=== PATIENT | male | born 1935 | race Caucasian/White ===

== ENCOUNTER 2019-04-04 03:39 | Inpatient (IN) | payer MEDICARE, MEDICAID ==
[~2019-04-04] VITALS: Ht 167.6 cm; Wt 88.2 kg
[2019-04-04 04:00] VITALS: BP 183/99
[2019-04-04 04:30] VITALS: BP 179/88
[2019-04-04 05:30] VITALS: BP 189/96
[2019-04-04] MEDS ORDERED: BAYER CHEWABLE81 MG PO (06:03)
[2019-04-04] MEDS ORDERED: FLOMAX0.4 MG PO (06:04)
[2019-04-04] MEDS ORDERED: NEXIUM40 MG PO (06:04)
[2019-04-04] MEDS ORDERED: HYDROCHLOROTHIA25 MG PO (06:04)
[2019-04-04] MEDS ORDERED: FEXOFENADINE H180 MG PO (06:05)
[2019-04-04] MEDS ORDERED: SINGULAIR10 MG PO (06:06)
[2019-04-04] MEDS ORDERED: NEURONTIN 300300 MG PO (06:06)
[2019-04-04 09:55] VITALS: BMI 31.4
[2019-04-04 10:35] VITALS: BP 181/80
[2019-04-04 11:00] LABS: BASOPHILS 0.1 % (0-2); EOSINOPHILS 0 % (0-7); HEMOGLOBIN 15.7 g/dL (13.5-17.5); IMMATURE GRANULOCYTES 0.3 % (0-5); LYMPHOCYTES 9.3 % (15-50); MCH 29.7 pg (26.0-34.0); MCHC 33.4 g/dL (31.0-37.0); MCV 88.8 fL (80.0-100.0); MEAN PLATELET VOLUME 11.2 fL (7.4-10.4); MONOCYTES 7.8 % (2-11); NEUTROPHILS 82.5 % (40-80); PLATELET COUNT 261 10x3/uL (130-400); RBC 5.29 10x6/uL (4.20-6.10); RDW 13.9 % (11.5-14.5)
[2019-04-04 11:16] LABS: ALBUMIN 3.2 g/dL (3.4-5.0); ALKALINE PHOSPHATASE 84 U/L (46-116); ALT (SGPT) 28 U/L (10-68); BILIRUBIN - TOTAL 0.49 mg/dL (0.2-1.3); CALC OSMOLALITY 275 mosm/kg (275-300); CALCIUM 8.8 mg/dL (8.5-10.1); CARBON DIOXIDE 29.2 mmol/L (21.0-32.0); CHLORIDE - SERUM 100 mmol/L (98-107); CREATININE - SERUM 0.9 mg/dL (0.6-1.3); GLUCOSE 136 mg/dL (74-106); POTASSIUM - SERUM 4.1 mmol/L (3.5-5.1); PROTEIN - SERUM 7.6 g/dL (6.4-8.2); SODIUM 137 mmol/L (136-145); UREA NITROGEN 12 mg/dL (7-18); eGFR NON AFRICAN AMERICAN 85 mL/min (90-120)
[2019-04-04 11:31] VITALS: BP 189/96; BMI 31.3
--- NOTE | 2019-04-04 13:04 | MORECARE ---
CASE MANAGEMENT DISCHARGE SUMMARY PATIENT: MINERVA FOSTER UNIT: [id number] ADM DATE: 04/04/19 AGE: 83 : 35 SEX: M ROOM/BED: D.2214 AUTHOR: FARHANA DIAZ PHYSICIAN: REFERRING PHYSICIAN: CAROLINA HANNON MD DATE OF SERVICE: 04/04/19 Discharge Plan Patient Name: MINERVA FOSTER Facility: [facility]:[place] : 1935 Planned Disposition: Anticipated Discharge Date: Discharge Date: Expected LOS: Initial Reviewer: [email or web address] Initial Review Date: 04/04/2019 Generated: 04/04/19 2:04 pm Comments DCP- Discharge Planning Updated by [email or web address]: Марина Hamm on 04/04/19 12:[address] RECEIVED ORDER TO TRANSFER PATIENT DUE TO OR BEING DOWN. I SPOKW WITH PATIENT AND HE WOULD LIKE TO GO TO [facility]. EASY ADMIT CALLED I SPOKE WITH WERO FAXED FACESHEET TO START THE PROCESS TO TRANSFER FOR SURGERY. CM TO FOLLOW AND ASSIST NEEDED Patient Name: MINERVA FOSTER Page [phone] at 1304 All edits/amendments must be made on the electronic document DICTATION DATE: 04/04/19 1304 AIRCRAFT ACCESSORIES MECHANIC: CY 04/04/19 1304 RPT#: [id number] DC DATE: STATUS: ADM IN [facility] [address] [place] [address] END OF REPORT
[2019-04-04 13:45] VITALS: BP 160/78
[2019-04-04 13:52] VITALS: Ht 167.6 cm; Wt 88.2 kg
--- NOTE | 2019-04-04 15:15 | MORECARE ---
CASE MANAGEMENT DISCHARGE SUMMARY PATIENT: MINERVA FOSTER UNIT: [id number] ADM DATE: 04/04/19 AGE: 83 : 35 SEX: M ROOM/BED: D.2214 AUTHOR: FARHANA DIAZ PHYSICIAN: REFERRING PHYSICIAN: CAROLINA HANNON MD DATE OF SERVICE: 04/04/19 Discharge Plan Patient Name: MINERVA FOSTER Facility: [facility]:[place] : 1935 Planned Disposition: Anticipated Discharge Date: Discharge Date: Expected LOS: Initial Reviewer: [email or web address] Initial Review Date: 04/04/2019 Generated: 04/04/19 4:15 pm Comments DCP- Discharge Planning Updated by [email or web address]: Марниа Hamm on 04/04/19 2:[address] SPOKE WITH LYNDSEY IRIZARRY AND DR AGARWAL MULTIPLE TIMES. DR AGARWAL STATED TO CONTINUE TO TRY TRANSFER, I CALLED WERO WITH EASY ADMIT SHE STATED THAT [facility] WOULD NOT EVEN TAKE HIS NAME, THEY ARE FULL [facility] HAS DENIED THE PATIENT AND HE IS ON A WAIT LIST FOR LATTER-DAY IN , BECAUSE THEY ARE FULL. WILL CONTINUE TO FOLLOW AND ASSIST WITH TRANSFERING PATIENT. DCP- Discharge Planning Updated by [email or web address]: Марина Hamm on 04/04/19 12:[address] RECEIVED ORDER TO TRANSFER PATIENT DUE TO OR BEING DOWN. I SPOKW WITH PATIENT AND HE WOULD LIKE TO GO TO [facility]. EASY ADMIT CALLED I SPOKE WITH WERO FAXED FACESHEET TO START THE PROCESS TO TRANSFER FOR SURGERY. CM TO FOLLOW AND ASSIST NEEDED Last DP export: 04/04/19 12:04 p Patient Name: MINERVA FOSTER Page [phone] at 1515 All edits/amendments must be made on the electronic document DICTATION DATE: 04/04/191514 BOOM CONVEYOR OPERATOR: CY 04/04/191514 RPT#: [id number] DC DATE: STATUS: ADM IN [facility] [address] [place] [address] END OF REPORT
[2019-04-04] MEDS ORDERED: MERREM 1 GM/NS 11 G1 IV (16:16)
--- NOTE | 2019-04-04 16:16 | NUR ---
PT WILL TRANSFER TO [facility] IN [place]. LEONEL BARRETT RN
--- NOTE | 2019-04-04 17:02 | NUR ---
LEFT UNNIT WITH [facility] FOT TRANSPORT TO [facility] IN [place]
--- NOTE | 2019-04-05 16:40 | MORECARE ---
CASE MANAGEMENT DISCHARGE SUMMARY PATIENT: MINERVA FOSTER UNIT: [id number] ADM DATE: 04/04/19 AGE: 83 : 35 SEX: M ROOM/BED: D.2214 AUTHOR: FARHANA DIAZ PHYSICIAN: REFERRING PHYSICIAN: CAROLINA HANNON MD DATE OF SERVICE: 04/05/19 Discharge Plan Patient Name: MINERVA FOSTER Facility: [facility]:[place] : 1935 Planned Disposition: Anticipated Discharge Date: Discharge Date: 04/04/2019 Expected LOS: 0 Initial Reviewer: [email or web address] Initial Review Date: 04/04/2019 Generated: 04/05/19 5:40 pm Comments DCP- Discharge Planning Updated by [email or web address]: Марина Hamm on 04/04/19 2:[address] SPOKE WITH LYNDSEY IRIZARRY AND DR AGARWAL MULTIPLE TIMES. DR AGARWAL STATED TO CONTINUE TO TRY TRANSFER, I CALLED WERO WITH EASY ADMIT SHE STATED THAT [facility] WOULD NOT EVEN TAKE HIS NAME, THEY ARE FULL [facility] HAS DENIED THE PATIENT AND HE IS ON A WAIT LIST FOR [place] IN , BECAUSE THEY ARE FULL. WILL CONTINUE TO FOLLOW AND ASSIST WITH TRANSFERING PATIENT. DCP- Discharge Planning Updated by [email or web address]: Марина Hamm on 04/04/19 12:[address] RECEIVED ORDER TO TRANSFER PATIENT DUE TO OR BEING DOWN. I SPOKW WITH PATIENT AND HE WOULD LIKE TO GO TO [facility]. EASY ADMIT CALLED I SPOKE WITH WERO FAXED FACESHEET TO START THE PROCESS TO TRANSFER FOR SURGERY. CM TO FOLLOW AND ASSIST NEEDED Last DP export: 04/04/19 2:15 p Patient Name: MINERVA FOSTER Page 85031 at 1640 All edits/amendments must be made on the electronic document DICTATION DATE: 04/05/191638 HOIST MECHANIC: CY 04/05/19 1639 RPT#: [id number] DC DATE:04/04/19 STATUS: DIS IN [facility] [address] [place] [address] END OF REPORT
== END 2019-04-04 17:02 | disposition short-term general hospital (02) | DRG 444 ==
LOC: D.ER 03:39 → D.MS 04:44
PROVIDERS: ADMIT Family Medicine; ATTEND Family Medicine
DX: K81.0 Acute cholecystitis (principal); J96.01 Acute respiratory failure with hypoxia; J44.0 Chronic obstructive pulmonary disease with (acute) lower respiratory infection; J84.9 Interstitial pulmonary disease, unspecified; K21.9 Gastro-esophageal reflux disease without esophagitis; F10.10 Alcohol abuse, uncomplicated

== ENCOUNTER 2019-04-27 01:45 | Observation (INO) | payer MEDICARE ==
[~2019-04-27] VITALS: Ht 167.6 cm; Wt 83.2 kg
--- NOTE | ~2019-04-27 | HEMODYNAMI ---
PATIENT:MINERVA NYE MEDICAL RECORD: [id number] : 35 [facility] [id number] ADMISSION DATE: 04/27/19 Generatedon:04/27/201910:26 Patient name: MINERVA NYE Patient #: [id number] SSN: : 1935 Date of study: 04/27/2019 Page: Of Hemodynamic Procedure Report Patient Data Patient Demographics Procedure consent was obtained First Name: MINERVA Gender: Male Last Name: PARRIS : 1935 Patient #: [id number] Age: 83 year(s) Race: Unknown Additional ID: [id number] Contact details [address]: [address] [place] [address] State: [place] City: [place] Zip code: [address] Past Medical History Allergies: No known allergies Admission Admission Data Admission Date: 04/27/2019 Admission Time: 3:16 Room #: D.2139 Lab Results Lab Result Date: 04/27/2019 Lab Result Time: 2:21 Biochemistry Name Units Result Min Max BUN mg/dl 21 --(----)-* 7 18 Creatinine mg/dl 1 --(--*-)-- 0.6 1.3 CBC Name Units Result Min Max Hematocrit % 44.2 --(*---)-- 42 54 Hemoglobin g/dl 14.6 --(-*--)-- 13.5 17.5 Procedure Procedure Types Cath Procedure Diagnostic Procedure LHC LHC w/Coronaries Sedation Charges Moderate Sedation up to 15 minutes PCI Procedure Coronary Stent Coronary Stent Initial Procedure Description Procedure Date Procedure Date: 04/27/2019 Procedure Start Time: 9:55 Procedure End Time: 10:22 Procedure Staff Name Function Sajan Rdz MD Performing Physician Shruti Nick RT Scrub Kartik Dumont RN Nurse Jose Medrano RT Monitor Samuel Herman RT Monitor Procedure Data Cath Procedure Fluoroscopy Diagnostic fluoroscopy Total fluoroscopy Time: 5.4 time: 5.4 min min Diagnostic fluoroscopy Total fluoroscopy dose: 876 dose: 876 mGy mGy Contrast Material Contrast Material Type Amount (ml) Isovue 300 91 Entry Location Entry Primary Successful Side Size Upsize 1 Upsize Entry Closure Llanes ccessful Closure Location (Fr) (Fr) 2 (Fr) Remarks Device Remarks Femoral Right 5 Fr 6 Fr 6 Fr Exoseal artery Mid-Length Short Estimated blood loss: 10 ml Diagnostic catheters Device Type Used For End Catheter Placement MULTIPACK JL 4.0 5Fr Procedure catheter MULTIPACK 3DRC 5Fr Procedure catheter MULTIPACK Pigtail 5 Fr Procedure catheter Procedure Complications No complications Procedure Medications Medication Administration Route Dosage Oxygen etCO2 Nasal cannula 2 l/min Lidocaine 2% added to field 20 Heparin Flush Bag added to field 2 bags (1000units/500ml NS) 0.9% NaCl I.V. 100 ml/hr Versed I.V. 1 mg Fentanyl I.V. 50 mcg Versed I.V. 1 mg Heparin Bolus I.V. 4000 units Fentanyl I.V. 50 mcg Versed I.V. 1 mg Hemodynamics Rest HGB: 14.6 (g/dl) Heart Rate: 64 (bpm) Pressure Samples Time Site Value (mmHg) Purpose Heart Use Rate(bpm) 10:18 LV 183/9,12 Snapshot 73 Gradients Valve Time Site Site Mean SEP/DFP Peak To Heart Use 1 2 (mmHg) (sec/min) Peak Rate (mmHg) (bpm) Aortic 10:18 LV AO 72 Snapshots Pre Cath Intra NCS Post Cath Vital Signs Time Heart Resp SPO2 etCO2 NIBP (mmHg) Rhythm Pain Sedation Rate (ipm) (%) (mmHg) Status Level (bpm) 9:52:21 63 15 96 41.1 136/66(93) NSR 0 (11) 10(A) , No pain 9:56:29 64 13 94 0 114/67(85) NSR 0 (11) 10(A) , No pain 10:00:39 62 13 97 14.9 131/67(108) NSR 0 (11) 9(A) , No pain 10:04:53 70 13 97 10.4 123/68(92) NSR 0 (11) 9(A) , No pain 10:09:03 68 14 96 29.1 117/67(92) NSR 0 (11) 9(A) , No pain 10:13:11 67 14 97 25.4 134/68(106) NSR 0 (11) 9(A) , No pain 10:18:18 73 13 96 9.7 166/89(140) NSR 0 (11) 9(A) , No pain 10:22:36 71 16 96 28.4 154/93(137) NSR 0 (11) 10(A) , No pain Medications Time Medication Route Dose Verified Delivered Reason Notes Effectiveness by by 9:51:28 Oxygen etCO2 2 Sajan Verdugo used for Nasal l/min [facility] Emre Dumont RN procedure cannula 9:51:39 Lidocaine 2% added 20ml Sajan Moeller for local to vial [facility] anesthetic field MD FRAUSTO 9:51:57 Heparin Flush added 2 Sajan Sajan used for Bag to bags [facility] procedure (1000units/500ml field MD FRAUSTO NS) 9:52:10 0.9% NaCl I.V. 100 Sajan Verdugo Per physician ml/hr [facility] Dumont RN, MD 9:54:21 Versed I.V. 1 mg Sajan Verdugo for sedation [facility] Em[facility] Dumont RN, MD 9:54:27 Fentanyl I.V. 50 Sajan Friasie for sedation mcg [facility] Emre Dumont RN, MD 10:01:18 Versed I.V. 1 mg Sajan Verdugo for sedation [facility] Emre Dumont RN, MD 10:02:22 Fentanyl I.V. 50 Sajan Verdugo for sedation mcg [facility] Emre Dumont RN, MD 10:07:34 Heparin Bolus I.V. 4000 Sajan Verdugo for verif ied units [facility] Emre Dumont RN anticoagulation with dr MD gray 10:10:39 Versed I.V. 1 mg Sajan Verdugo for sedation [facility] Emre Dumont RN, MD Procedure Log Time Note 8:59:08 Diagnostic Cath Status : Elective 9:00:37 Kartik Dumont RN sent for patient. Start room use. 9:35:57 Time tracking: Regular hours (M-F 7:00 - 5:00) 9:36:01 Plan of Care:Hemodynamics will remain stable., Cardiac rhythm will remain stable., Comfort level will be maintained., Respiratory function will remain adequate., Patient/ family verbilizes understanding of procedure., Procedure tolerated without complication., Recovers from procedure without complications.. 9:36:09 Patient received from Med II to [facility] Alert and oriented. Tansferred to table in Supine position. 9:36:10 Warm blankets applied, and tien hugger turned on for patient comfort. 9:36:11 Correct patient and procedure confirmed by team. 9:36:25 Signed procedure consent form obtained from patient. 9:36:27 ECG and BP/O2 sat monitors applied to patient. 9:51:16 Vital chart was started 9:51:28 Oxygen 2 l/min etCO2 Nasal cannula was administered by Kartik Dumont RN; used for procedure; 9:51:31 Baseline sample Acquired. 9:51:33 Rhythm: sinus rhythm 9:51:35 Full Disclosure recording started 9:51:39 Lidocaine 2% 20ml vial added to field was administered by Sajan Rdz MD; for local anesthetic; 9:51:47 H&P Date Dictated: 04/27/2019 Within 30 days and on chart.. 9:51:48 Pre-procedure instructions explained to patient. 9:51:48 Pre-op teaching completed and patient verbalized understanding. 9:51:50 Family in patients room. 9:51:51 Patient NPO since Midnight. 9:51:57 Heparin Flush Bag (1000units/500ml NS) 2 bags added to field was administered by Sajan Rdz MD; used for procedure; 9:52:03 Patient allergic to No known allergies 9:52:05 Is the patient allergic to Iodine/contrast media? No. 9:52:05 Is patient on blood thinner?Yes 9:52:07 ACC The patient was administered the following blood thiners within the last 24 hours: ACCPlavix 9:52:09 Patient diabetic? No. 9:52:10 0.9% NaCl 100 ml/hr I.V. was administered by Kartik Dumont RN; Per physician; 9:52:17 Previous problem with sedation/anesthesia? No ? 9:52:18 Snore? Yes 9:52:19 Sleep apnea? No 9:52:21 Deviated septum? No 9:52:22 Opens mouth fully? Yes 9:52:26 Sticks out tongue? Yes 9:52:28 Airway obstruction? No ? 9:52:31 Dentures? Yes in tight 9:52:34 Pre procedure: right dorsailis pedis pulse 1+ Palpable, but thready & weak; easily obliterated 9:52:35 Patient pain scale 0/10 ?. 9:52:39 IV patent on arrival in left forearm with 0.9% NaCl at O. 9:53:14 Lab Result : Creatinine 1 mg/dl 9:53:14 Lab Result : BUN 21 mg/dl 9:53:14 Lab Result : Hemoglobin 14.6 g/dl 9:53:14 Lab Result : Hematocrit 44.2 % 9:53:18 Lab results completed and on chart. 9:53:31 Right groin area was prepped with chlora-prep and draped in sterile fashion 9:53:32 Alarms reviewed by R. N. 9:53:33 Sharps counted by scrub and verified by R.N. 9:53:35 Use device set Femoral Dx 9:53:36 ACIST Syringe (13984) opened to sterile field. 9:53:36 Bag Decanter (2002S) opened to sterile field. 9:53:37 Medline Cath Pack ([id number]) opened to sterile field. 9:53:38 ACIST Hand Control (44345) opened to sterile field. 9:53:38 ACIST Manifold (15300) opened to sterile field. 9:53:39 Tegaderm 4 x 4 (1626W) opened to sterile field. 9:53:41 DIAGNOSTIC WIRE .035 260cm J wire (171814) opened to sterile field. 9:53:42 DIAGNOSTIC Multipack 5Fr catheter set (AE9242) opened to sterile field. 9:53:43 SHEATH 5FR [place] (XMB808) opened to sterile field. 9:53:50 Physician arrived 9:53:50 --------ALL STOP TIME OUT------ 9:53:50 Final Timeout: patient, procedure, and site verified with staff and physician. All members of the team are in agreement. 9:53:52 Right groin site verified by team. 9:53:55 Maximum allowable Isovue 300 dose 300ml. Physician notified. (300ml for normal creatinines. For patients with creatinine of 1.7 or higher multiply weight(kg) x 5 divided by creatinine.) 9:53:59 Fire Safety Assessment: A--An alcohol-based skin anteseptic being used preoperatively., C--Open oxygen or nitrous oxide is being used., D--An ESU, laser, or fiber-optic light is being used. 9:54:02 Physical assessment completed. ASA score P 2 - A patient with mild systemic disease as per Sajan Rdz MD. 9:54:04 Sedation plan: IV Moderate Sedation Medication:Versed, Fentanyl 9:54:08 Procedure started. 9:54:21 Versed 1 mg I.V. was administered by Kartik Dumont RN; for sedation; 9:54:27 Fentanyl 50 mcg I.V. was administered by Kartik Dumont RN; for sedation; 9:55:26 Local anesthetic to right femoral artery with Lidocaine 2% by Sajan Rdz MD.INITIAL ACCESS ONLY 9:55:32 A 5 Fr sheath was inserted into the Right Femoral artery 9:55:35 Zero performed for pressure channel P1 9:55:44 Zero performed for pressure channel P1 9:55:48 Zero performed for pressure channel P1 9:55:58 Zero performed for pressure channel P1 9:56:12 Zero performed for pressure channel P1 9:56:17 Zero performed for pressure channel P1 10:00:33 A MULTIPACK JL 4.0 5Fr catheter was advanced over the wire and used for Procedure. 10:00:40 LCA angiography performed. 10:01:18 Versed 1 mg I.V. was administered by Kartik Dumont RN; for sedation; 10:02:22 Fentanyl 50 mcg I.V. was administered by Kartik Dumont RN; for sedation; 10:02:24 Catheter exchanged over wire. 10:02:30 A MULTIPACK 3DRC 5Fr catheter was advanced over the wire and used for Procedure. 10:02:37 RCA angiography performed. 10:03:05 Catheter exchanged over wire. 10:03:44 WHISPER 300cm guide wire ([id number]) opened to sterile field. 10:03:45 INFLATOR Merit BasixCompak (WC3312) opened to sterile field. 10:03:45 SHEATH 6FR Destination (RSR01) opened to sterile field. 10:04:39 GUIDE 6FR HS I catheter (LA6HSI) opened to sterile field. 10:05:20 Sheath upsized to a 6 Fr Mid-Length. 10:05:27 SHEATH 6FR [place]inee (FDB500) opened to sterile field. 10:06:54 6 Fr HSI guide catheter was inserted over the wire 10:07:34 Heparin Bolus 4000 units I.V. was administered by Kartik Dumont RN; for anticoagulation; verified with dr gray 10:08:09 WHISPER wire advanced. 10:08:33 Wire advanced across lesion. 10:10:05 CHOICE PT Extra Support J 300cm guide wire ([id number]) opened to sterile field. 10:10:39 Versed 1 mg I.V. was administered by Kartik Dumont RN; for sedation; 10:10:44 WHISPER WIRE ECHANGED FOR CHOICE PT ES WIRE THROUGH BALLOON. 10:11:55 Inflate balloon Inflation number: 1 A EMERGE OTW 3.0 x 15 balloon ([id number]) was prepped and advanced across the Prox RCA , then inflated to 14 HECTOR for 0:45 (min:sec) . 10:12:26 Inflation number: 2 The EMERGE OTW 3.0 x 15 balloon ([id number]) was reinflated across the Prox RCA , to 14 HECTOR for 0:45 (min:sec) . 10:12:49 Balloon removed over the wire. 10:15:58 Place stent Inflation Number: 3 A FORREST RX 3.0 x 15 stent ([id number]) was prepped and advanced across the Prox RCA 99. The stent was deployed at 14 HECTOR for 0:30 (min:sec) 0. 10:17:12 Stent catheter was removed intact over wire. 10:17:12 Wire removed. 10:17:25 Sheath upsized to a 6 Fr Short. 10:17:32 EXOSEAL 6Fr (EX600) opened to sterile field. 10:17:41 Catheter exchanged over wire. 10:18:03 A MULTIPACK Pigtail 5 Fr catheter was advanced over the wire and used for Procedure. 10:18:21 LV gram done using PUGH 10:18:24 Injector settings: Ml/sec: 10, Volume: 20, 10:18:29 LV hemodynamics recorded. 10:18:34 EF : 55 % 10:19:16 Catheter removed. 10:19:24 Sheath removed intact; hemostasis achieved with Exoseal to the Right Femoral artery. 10:19:26 Procedure ended.(Physican Out) 10:19:59 Fluoroscopy time 05.40 minutes. 10:20:08 Flurop Dose total: 876 10:20:08 Fluoroscopy dose: 876 mGy 10:20:10 Contrast amount:Isovue 300 91ml. 10:20:11 Sharps counted by scrub and verified by R.N. 10:20:12 Insertion/operative site no bleeding no hematoma. 10:20:14 Post-op/insertion site Right Femoral artery dressed using a 4 x 4 and Tegaderm. 10:20:18 Post right femoral artery:stable, soft, clean and dry 10:20:20 Post Procedure Pulses reassessed and unchanged 10:20:21 Post-procedure physical assessment completed. ASA score P 2 - A patient with mild systemic disease as per Sajan Rdz MD. 10:20:23 Post procedure rhythm: unchanged. 10:20:25 Estimated blood loss: 10 ml 10:20:26 Post procedure instruction explained to patient.Patient verbalizes understanding. 10:20:26 Patient needs reinforcement of post procedure teaching. 10:20:38 Procedure type changed to Cath procedure, Diagnostic procedure, LHC, LHC w/Coronaries, Sedation Charges, Moderate Sedation up to 15 minutes, PCI procedure, Coronary Stent, Coronary Stent Initial 10:22:00 Procedure and supply charges have been captured, reviewed, submitted and are correct. 10:22:02 Procedure Complication : No complications 10:22:03 Vital chart was stopped 10:22:04 See physician's report for complete and final results. 10:22:05 Report given to PCU. 10:22:12 Patient transfered to PCU with Stretcher. 10:22:16 Procedure ended. 10:22:16 Full Disclosure recording stopped 10:22:20 End room use (Document Last) Intervention Summary Intervention Notes Time ActionType Lesion and Equipment Used Action# Pressure Duration Attributes 10:11:55 Inflate Prox RCA EMERGE OTW 3.0 1 14 00:45 balloon x 15 balloon ([id number]) 10:12:26 Reinflate Prox RCA EMERGE OTW 3.0 2 14 00:45 balloon x 15 balloon ([id number]) 10:15:58 Place stent Prox RCA FORREST RX 3.0 x 3 14 00:30 15 stent ([id number]) Device Usage Item Name Manufacture Quantity Catalog Number Hospital Part Current Minimal Lot# / Charge Number Stock Stock Serial# Code ACIST Syringe Acist 1 09088 001584 751389 440478 20 (82648) Wrapp Inc Bag Decanter Microtek 1 268716 76989 064372 5 (2002S) Medical Inc. Medline Cath Medline 1 [id number] 681035 63522 597727 5 Pack ([id number]) ACIST Hand Acist 1 11138 604432 609824 985576 5 Control Medical (67769) Systems Inc ACIST Manifold Acist 1 96409 289029 957181 242686 5 (42561) Medical Systems Inc Tegaderm 4 x 4 3M 1 1626W 309887 591972 867060 5 (1626W) DIAGNOSTIC [facility] 1 843381 716261 354555 698543 30 WIRE .035 260cm J wire (443446) DIAGNOSTIC Cardinal 1 FW8437 134686 31501 850863 30 Multipack 5Fr Health catheter set (QE8459) SHEATH 5FR Terumo 1 QQH912 608886 649833 965867 5 [place] (FZY318) MULTIPACK JL Cardinal 1 365351 5 4.0 5Fr Health catheter MULTIPACK 3DRC Cardinal 1 009618 5 5Fr catheter Health MULTIPACK Cardinal 1 833986 5 Pigtail 5 Fr Health catheter WHISPER 300cm Varma 1 [id number] 985838 958158 898015 5 guide wire Vascular ([id number]) INFLATOR Merit Merit 1 DK5091 728467 978206 507797 15 [employer] Medical (YH6230) SHEATH 6FR Terumo 1 RSR01 726764 68969 787567 5 Destination (RSR01) GUIDE 6FR HS I Medtronic 1 LA6HSI 859810 01602 113493 1 catheter (LA6HSI) SHEATH 6FR Terumo 1 BGR165 518897 281563 703648 40 Men[place]inee (QLU820) CHOICE PT [place] 1 [id number] 137293 519987 876082 5 Extra Support Scientific J 300cm guide wire ([id number]) EMERGE OTW 3.0 [place] 1 [id number] 083788 268767 228338 5 [id number] x 15 balloon Scientific ([id number]) FORREST RX 3.0 x Medtronic 1 [id number] 967759 6714458 972047 5 [id number] 15 stent ([id number]) EXOSEAL 6Fr Cardinal 1 EX600 658884 266315 218130 10 (EX600) Health Signature Audit [place] Stage Time Signature Unsigned Intra-Procedure 04/27/2019 Samuel Herman 10:26:46 AM RT(R) Signatures Monitor : Jose Medrano RT Signature : Date : Time : Monitor : Samuel Herman RT Signature : Date : Time : [place] [id number] [place] [address]
[~2019-04-27 01:45] MED LIST: BAYER CHEWABLE81 MG PO; FEXOFENADINE H180 MG PO; FLOMAX0.4 MG PO; HYDROCHLOROTHIA25 MG PO; MERREM 1 GM/NS 11 G1 IV; NEURONTIN 300300 MG PO; NEXIUM40 MG PO; SINGULAIR10 MG PO
[2019-04-27] MEDS ORDERED: FEXOFENADINE H180 MG PO (01:48)
[2019-04-27 02:26] LABS: BASOPHILS 0.3 % (0-2); EOSINOPHILS 1.4 % (0-7); HEMATOCRIT 44.2 % (42.0-54.0); HEMOGLOBIN 14.6 g/dL (13.5-17.5); IMMATURE GRANULOCYTES 0.3 % (0-5); LYMPHOCYTES 23.2 % (15-50); MCH 28.9 pg (26.0-34.0); MCV 87.4 fL (80.0-100.0); MONOCYTES 11.7 % (2-11); NEUTROPHILS 63.1 % (40-80); PLATELET COUNT 226 10x3/uL (130-400); RBC 5.06 10x6/uL (4.20-6.10); WBC 7.9 10x3/uL (4.8-10.8)
[2019-04-27 02:40] LABS: ALBUMIN 3.3 g/dL (3.4-5.0); ALKALINE PHOSPHATASE 98 U/L (46-116); ALT (SGPT) 46 U/L (10-68); BILIRUBIN - TOTAL 0.39 mg/dL (0.2-1.3); CALC OSMOLALITY 288 mosm/kg (275-300); CALCIUM 9.1 mg/dL (8.5-10.1); CARBON DIOXIDE 30.8 mmol/L (21.0-32.0); CHLORIDE - SERUM 104 mmol/L (98-107); GLUCOSE 114 mg/dL (74-106); POTASSIUM - SERUM 3.5 mmol/L (3.5-5.1); PROTEIN - SERUM 7.1 g/dL (6.4-8.2); SODIUM 143 mmol/L (136-145); UREA NITROGEN 21 mg/dL (7-18); eGFR NON AFRICAN AMERICAN 76 mL/min (90-120)
[2019-04-27 02:57] LABS: CREATINE KINASE 30 UL (21-232)
[2019-04-27 03:00] LABS: TROPONIN-I 0.224 ng/mL (0.000-0.060)
--- NOTE | 2019-04-27 03:00 | NUR ---
CRITICAL LAB CALLED WITH TROPONIN OF 0.224. EDP NOTIFIED.
[2019-04-27 03:14] VITALS: BP 151/85
--- NOTE | 2019-04-27 06:12 | NUR ---
FROM ER VIA WC TO BED LOW AND CALL LIGHT PROVIDED SKIN WARM AND DRY DENIES CP AT THIS TIME HISTORY AND MED REC DONE
[2019-04-27 06:48] VITALS: BP 163/81; BMI 29.6
--- NOTE | 2019-04-27 07:20 | NUR ---
ADMISSION ASSESSMENT DONE. NO CO OF CHEST PAIN. MONITOR SHOWS NSR @ 64. WILL CONTINUE TO MONITOR.
--- NOTE | 2019-04-27 07:33 | NUR ---
REPORT RECEIVED. WILL CONTINUE WITH POC. PT CURRENTLY LYING SEMI FOWELRS. CALL LIGHT W/I REACH. PT IS AAO AND UP AD RIYA. RR EVEN AND UNLABORED ON RA. L.AC PIV IS SALINE LOCKED. PT IS NPO FOR HEART CATH THIS AM. PT DENIES ANY NEEDS AT THIS TIME. NO S/S OF DISTRESS NOTED. WILL CTM.
[2019-04-27 08:18] LABS: CKMB 3.7 U/L (0.0-3.6); CREATINE KINASE 38 UL (21-232); TROPONIN-I 0.494 ng/mL (0.000-0.060)
[2019-04-27 08:45] LABS: CALC OSMOLALITY 284 mosm/kg (275-300); CARBON DIOXIDE 29.4 mmol/L (21.0-32.0); CHLORIDE - SERUM 103 mmol/L (98-107); GLUCOSE 105 mg/dL (74-106); POTASSIUM - SERUM 3.5 mmol/L (3.5-5.1); SODIUM 141 mmol/L (136-145); UREA NITROGEN 23 mg/dL (7-18); eGFR NON AFRICAN AMERICAN 76 mL/min (90-120)
--- NOTE | 2019-04-27 08:50 | NUR ---
PREOP MEDICATIONS ADMINISTERED PER PIPE BLANKS CUT OFF SAW OPERATOR REQUEST. PT AAO AND DENIES ANY NEEDS. NS INFUSING @KVO VIA L.HAND PIV. WILL CTM.
--- NOTE | 2019-04-27 10:49 | NUR ---
PT RETURNED FROM [facility]ATWORK [facility]ISHER. PT HAD ONE STENT TO RCA. RIGHT FEM CATH SITE IS C/D/I WITH NO S/S OF HEMATOMA PRESENT. NS INFUSING @100ML/HR VIA L.HAND PIV. PERIPHERAL PULSES EVEN BILATERALLY. WILL CTM.
[2019-04-27 11:21] VITALS: Ht 167.6 cm; Wt 83.2 kg
[2019-04-27] MEDS ORDERED: LIPITOR40 MG PO (11:22)
[2019-04-27] MEDS ORDERED: PLAVIX75 MG PO (11:22)
--- NOTE | 2019-04-27 11:30 | NUR ---
SMALL HEMATOMA FORMED AT CATH SITE. NOTIFIED CHARGE NURSE AND A FEMSTOP WAS PLACED ONTO RIGHT FEMORAL SITE. WILL MONITOR VSS Q15 MIN. WILL CTM.
[2019-04-27 11:51] VITALS: BP 145/74
[2019-04-27] MEDS ORDERED: ASPIRIN81 MG PO (12:09)
[2019-04-27] MEDS ORDERED: METOPROLOL TART25 MG PO (12:10)
--- NOTE | 2019-04-27 13:00 | NUR ---
REMOVED FEM STOP. CATH SITE HAS SMALL SOFT HEMATOMA. VSS AND WNL. WILL CTM.
--- NOTE | 2019-04-27 15:12 | NUR ---
PT DISCHARGED HOME VIA WHEELCHAIR WITH FAMILY. PT SIGNED PROPER DISCHARGE INSTRUCTION AND REMOVED ALL VALUABLES FROM THE ROOM. PIV REMOVED WITH CATHETER TIP FULLY INTACT. TELEMETRY REMOVED AND RETURNED. CATH SITE C/D/I WITH NO S/S OF HEMATOMA.
--- NOTE | 2019-04-30 10:31 | MORECARE ---
CASE MANAGEMENT DISCHARGE SUMMARY PATIENT: MINERVA NYE UNIT: [id number] ADM DATE: 04/27/19 AGE: 83 : 35 SEX: M ROOM/BED: D.2139 AUTHOR: FARHANA DIAZ PHYSICIAN: REFERRING PHYSICIAN: MARILU GRULLON MD DATE OF SERVICE: 04/30/19 Discharge Plan Patient Name: MINERVA NYE Facility: [facility]:[place] : 1935 Planned Disposition: Home Anticipated Discharge Date: 04/27/19 Discharge Date: 04/27/2019 Expected LOS: 1 Initial Reviewer: [email or web address] Initial Review Date: 04/30/2019 Generated: 04/30/19 11:31 am Patient Name: MINERVA NYE Page 99605 at 1031 All edits/amendments must be made on the electronic document DICTATION DATE: 04/30/19 1031 PRODUCT DEVELOPMENT TECHNICIAN: CY 04/30/19 1031 RPT#: [id number] DC DATE:04/27/19 STATUS: DIS IN [facility] [address] [place] [address] END OF REPORT
--- NOTE | 2019-04-30 15:06 | OP ---
PATIENT NAME: MINERVA NYE MEDICAL RECORD: [id number] :35 LOCATION:D.M2 D.2139 ADMISSION DATE:04/27/19 SURGEON: LUKE COE MD DATE OF OPERATION: 04/27/2019 PROCEDURE: Left heart catheterization, selective coronary angiography, right femoral artery approach. CATHETERS: A 5-Mongolian sheath, 5/4 left and right Sheila, 5/4 pig. The procedure was well tolerated. The patient was returned to the alvarez. Sheath was removed. ExoSeal device was placed. FINDINGS: Left ventriculography in 30-degree PUGH view: Normal wall motion and normal systolic function. CORONARY ANATOMY: LEFT MAIN: Left main is free of disease. LAD: Has about 80% tubular stenosis right before and extending after in its diagonal. CIRCUMFLEX: Luminal irregularities. RIGHT CORONARY ARTERY: Basically subtotaled in its proximal third. LASHAY flow 2 distally. IMPRESSION: FITZ is obviously the right coronary. PLAN: Intervention momentarily. A staged intervention to LAD at a later date. DESCRIPTION OF PROCEDURE: We had to use due to tortuosity use a long 6-Mongolian sheath. A hockey stick guide catheter provided fair guide catheter support followed by a 300 cm Whisper wire placed across the subtotaled right down this portion of vessel. We then placed a 3.0 x 15 mm balloon distally. Using the balloon as an exchange catheter, changed out to a PT export wire due to only fair guide support. Next, the balloon was brought back and used for pre-deployment. Next, stent deployed was a 3.0 x 15 mm Sarath drug-eluting stent up to 14 atmospheres for 45 seconds. Final angiography shows excellent resolution of a subtotal stenosis, no significant residual. LASHAY flow improved from 0 to 3. The patient was previously on Plavix. Heparin was used during the case. Sheath was closed with ExoSeal device. Planned interventional LAD at a later date. TRANSINT:[id number] Voice Confirmation ID: [id number] DOCUMENT ID: [id number] LUKE COE MD at 1506 CC: [id number] DICTATION DATE: 04/27/19 1025 INDUSTRIAL TRAINING SPECIALIST: 04/27/19 1055 DIS IN 04/27/19 [place] [address]
== END 2019-04-27 15:13 | disposition home or self-care (01) ==
LOC: D.ER 01:45 → OBSVTIME 03:16 → D.M2 03:16
PROVIDERS: Emergency Medicine; Internal Medicine Cardiovascular Disease; ADMIT Internal Medicine Nephrology; ATTEND Internal Medicine Nephrology
DX: I21.4 Non-ST elevation (NSTEMI) myocardial infarction (principal); N17.9 Acute kidney failure, unspecified; I10 Essential (primary) hypertension; J44.9 Chronic obstructive pulmonary disease, unspecified; K21.9 Gastro-esophageal reflux disease without esophagitis; N40.0 Benign prostatic hyperplasia without lower urinary tract symptoms; F10.10 Alcohol abuse, uncomplicated
CPT/HCPCS: 93458; C9600

== ENCOUNTER 2019-05-11 04:54 | Observation (INO) | payer MEDICARE ==
[~2019-05-11] VITALS: Ht 152.4 cm; Wt 83.6 kg
--- NOTE | ~2019-05-11 | HEMODYNAMI ---
PATIENT:MINERVA YNE MEDICAL RECORD: [id number] : 35 LOCATION:[address] ADMISSION DATE: 05/11/19 Generatedon:05/11/201914:29 Patient name: MINERVA NYE Patient #: [id number] SSN: : 1935 Date of study: 05/11/2019 Page: Of Hemodynamic Procedure Report Patient Data Patient Demographics Procedure consent was obtained First Name: MINERVA Gender: Male Last Name: PARRIS : 1935 Patient #: [id number] Age: 83 year(s) Race: Unknown Additional ID: [id number] Contact details [address]: [address] [place] [address] State: [place] City: [place] Zip code: [address] Past Medical History Allergies: No known allergies Admission Admission Data Admission Date: 05/11/2019 Admission Time: 6:06 Room #: D.2128 Weight (lbs.): 180.78 Weight (kg.): 82 Lab Results Lab Result Date: 05/11/2019 Lab Result Time: 0:00 Biochemistry Name Units Result Min Max BUN mg/dl 14 --(--*-)-- 7 18 Creatinine mg/dl 1 --(--*-)-- 0.6 1.3 eGFR ml/min 76.28294 *-(----)-- 90 120 NONAFRICAN CBC Name Units Result Min Max Hematocrit % 42.6 --(*---)-- 42 54 Hemoglobin g/dl 14.4 --(*---)-- 13.5 17.5 Procedure Procedure Types Cath Procedure Diagnostic Procedure Sedation Charges Moderate Sedation up to 30 minutes PCI Procedure Coronary Stent Coronary Stent Initial PTCA PTCA Additional Procedure Description Procedure Date Procedure Date: 05/11/2019 Procedure Start Time: 13:49 Procedure End Time: 14:28 Procedure Staff Name Function Sajan Rdz MD Performing Physician Samuel Herman RT Ticket Puller Kari Hare RT Monitor Tita Ventura RT Scrub Kartik Dumont RN Nurse Procedure Data Cath Procedure Fluoroscopy Diagnostic fluoroscopy Total fluoroscopy Time: 11 time: 11 min min Diagnostic fluoroscopy Total fluoroscopy dose: 951 dose: 951 mGy mGy Contrast Material Contrast Material Type Amount (ml) Isovue 300 137 Entry Location Entry Primary Successful Side Size Upsize Upsize Entry Closure Succes sful Closure Location (Fr) 1 (Fr) 2 (Fr) Remarks Device Remarks Femoral Left 6 Fr Exoseal artery Short Estimated blood loss: 10 ml Procedure Complications No complications Procedure Medications Medication Administration Route Dosage Oxygen etCO2 Nasal cannula 2 l/min Lidocaine 2% added to field 20 Heparin Flush Bag added to field 2 bags (1000units/500ml NS) 0.9% NaCl I.V. 100 ml/hr Versed I.V. 2 mg Fentanyl I.V. 50 mcg Versed I.V. 1 mg Fentanyl I.V. 50 mcg Heparin Bolus I.V. 4000 units Versed I.V. 1 mg Fentanyl I.V. 50 mcg Lopressor I.V. 5 mg Versed I.V. 1 mg Versed I.V. 1 mg Fentanyl I.V. 50 mcg Heparin Bolus I.V. 2000 units Hemodynamics Rest HGB: 14.4 (g/dl) Heart Rate: 82 (bpm) Snapshots Pre Cath Intra NCS Post Cath Vital Signs Time Heart Resp SPO2 etCO2 NIBP (mmHg) Rhythm Pain Sedation Rate (ipm) (%) (mmHg) Status Level (bpm) 13:39:27 82 22 95 0 159/90(135) NSR 0 (11) 10(A) , No pain 13:43:46 75 16 96 39.1 149/83(116) NSR 0 (11) 10(A) , No pain 13:48:04 72 16 97 28.5 128/80(95) NSR 0 (11) 10(A) , No pain 13:52:18 67 15 96 0 125/77(103) NSR 0 (11) 9(A) , No pain 13:56:30 78 14 93 33 118/68(92) NSR 0 (11) 9(A) , No pain 14:01:43 58 16 97 36 186/122(130) NSR w/ ST 0 (11) 9(A) Elevation , No pain 14:07:21 52 15 95 21 172/97(139) NSR w/ ST 0 (11) 9(A) Elevation , No pain 14:11:45 75 13 96 43.5 163/101(132) NSR w/ ST 0 (11) 9(A) Elevation , No pain 14:16:01 66 12 94 43.5 146/75(111) NSR w/ ST 0 (11) 9(A) Elevation , No pain 14:20:11 76 12 93 52.5 129/71(111) NSR 0 (11) 10(A) , No pain 14:24:27 72 12 95 12.7 129/70(99) NSR 0 (11) 10(A) , No pain 14:28:35 72 13 95 15.7 114/70(83) NSR 0 (11) 10(A) , No pain Medications Time Medication Route Dose Verified Delivered Reason Notes Effectiveness by by 13:43:01 Oxygen etCO2 2 Sajan Rodriguezie used for Nasal l/min St Emre Dumont RN procedure cannula 13:43:09 Lidocaine 2% added 20ml Sajan Panory for local to vial [facility] anesthetic field MD FRAUSTO 13:43:15 Heparin Flush added 2 Sajan Sajan used for Bag to bags [facility] procedure (1000units/500ml field MD FRAUSTO NS) 13:43:23 0.9% NaCl I.V. 100 Sajan Verdugo Per physician ml/hr [facility] Emre Dumont RN, MD 13:44:56 Versed I.V. 2 mg Sajan Buffie for sedation St Emre Dumont RN, MD 13:45:02 Fentanyl I.V. 50 Sajan Buffie for sedation mcg [facility] Emre Dumont RN, MD 13:50:46 Versed I.V. 1 mg Sajan Buffie for sedation St Emre Dumont RN, MD 13:50:49 Fentanyl I.V. 50 Sajan Buffie for sedation mcg [facility] Emre Dumont RN, MD 13:52:00 Heparin Bolus I.V. 4000 Sajan Buffie for verif ied units St Emre Dumont RN anticoagulation with dr MD gray 13:59:57 Versed I.V. 1 mg Sajan Buffie for sedation St Emre Dumont RN, MD 14:00:00 Fentanyl I.V. 50 Sajan Rodriguezie for sedation mcg [facility] Emre Dumont RN, MD 14:04:30 Lopressor I.V. 5 mg Sajan Buffie Per physician [facility] Emre Dumont RN, MD 14:07:54 Versed I.V. 1 mg Sajan Verdugo for sedation St Emre Dumont RN, MD 14:12:05 Versed I.V. 1 mg Sajan Verdugo for sedation St Emre Dumont RN, MD 14:12:09 Fentanyl I.V. 50 Sajan Verdugo for sedation mcg [facility] Emre Dumont RN, MD 14:12:33 Heparin Bolus I.V. 2000 Sajan Verdugo for verif ied units St Emre Dumont RN anticoagulation with dr MD gray Procedure Log Time Note 13:20:57 Samuel Herman RT(R) sent for patient. Start room use. 13:30:54 Signed procedure consent form obtained from patient. 13:31:04 Time tracking: Regular hours (M-F 7:00 - 5:00) 13:31:09 Plan of Care:Hemodynamics will remain stable., Cardiac rhythm will remain stable., Comfort level will be maintained., Respiratory function will remain adequate., Patient/ family verbilizes understanding of procedure., Procedure tolerated without complication., Recovers from procedure without complications.. 13:31:36 Patient Weight : 180.78 lbs 13:31:42 Patient allergic to No known allergies 13:32:02 Patient received from PCU to CCL 1 Alert and oriented. Tansferred to table in Supine position. 13:38:16 Warm blankets applied, and tien hugger turned on for patient comfort. 13:38:16 Correct patient and procedure confirmed by team. 13:38:17 ECG and BP/O2 sat monitors applied to patient. 13:38:18 Vital chart was started 13:38:20 Baseline sample Acquired. 13:38:26 Rhythm: sinus rhythm 13:38:26 Full Disclosure recording started 13:38:30 H&P Date Dictated: 05/11/2019 Within 30 days and on chart.. 13:38:33 Pre-procedure instructions explained to patient. 13:38:34 Pre-op teaching completed and patient verbalized understanding. 13:38:35 Family in patients room. 13:38:37 Patient NPO since Midnight. 13:38:38 Is the patient allergic to Iodine/contrast media? No. 13:38:40 Is patient on blood thinner?Yes 13:39:06 Patient diabetic? No. 13:39:08 Previous problem with sedation/anesthesia? No ? 13:39:09 Snore? Yes 13:39:11 Sleep apnea? No 13:39:12 Deviated septum? No 13:39:12 Opens mouth fully? Yes 13:39:15 Sticks out tongue? Yes 13:39:16 Airway obstruction? No ? 13:39:19 Dentures? Yes IN 13:39:23 Pre procedure: left dorsailis pedis pulse 1+ Palpable, but thready & weak; easily obliterated 13:39:31 Patient pain scale 0/10 ?. 13:39:39 IV patent on arrival in left forearm with 0.9% NaCl at [facility]. 13:39:41 Lab results completed and on chart. 13:39:44 Left groin area was prepped with chlora-prep and draped in sterile fashion 13:39:46 Alarms reviewed by R. N. 13:39:46 Sharps counted by scrub and verified by R.N. 13:42:40 Lab Result : Creatinine 1 mg/dl 13:42:40 Lab Result : BUN 14 mg/dl 13:42:40 Lab Result : eGFR NONAFRICAN 76.13659 ml/min 13:42:40 Lab Result : Hematocrit 42.6 % 13:42:40 Lab Result : Hemoglobin 14.4 g/dl 13:43:01 Oxygen 2 l/min etCO2 Nasal cannula was administered by Kartik Dumont RN; used for procedure; 13:43:09 Lidocaine 2% 20ml vial added to field was administered by Sajan Rdz MD; for local anesthetic; 13:43:15 Heparin Flush Bag (1000units/500ml NS) 2 bags added to field was administered by Sajan Rdz MD; used for procedure; 13:43:23 0.9% NaCl 100 ml/hr I.V. was administered by Kartik Dumont RN; Per physician; 44:44 --------ALL STOP TIME OUT------ ::44 Final Timeout: patient, procedure, and site verified with staff and physician. All members of the team are in agreement. 13:44:46 Left groin site verified by team. 13:44:49 Fire Safety Assessment: A--An alcohol-based skin anteseptic being used preoperatively., C--Open oxygen or nitrous oxide is being used., D--An ESU, laser, or fiber-optic light is being used. 13:44:53 Physical assessment completed. ASA score P 2 - A patient with mild systemic disease as per Sajan Rdz MD. 13:44:56 Versed 2 mg I.V. was administered by Kartik Dumont RN; for sedation; 13:45:02 Fentanyl 50 mcg I.V. was administered by Kartik Dumont RN; for sedation; 13:45:09 2) 60-89 Mildly reduced kidney function, and other findings (as for stage 1) point to kidney disease. 13:45:27 Maximum allowable contrast does (3.7 X eGFR X 0.75)211 ml. 13:45:31 Sedation plan: IV Moderate Sedation Medication:Versed, Fentanyl 13:46:45 Use device set CATH PACK 13:46:48 ACIST Syringe (78925) opened to sterile field. 13:46:48 ACIST Hand Control (25138) opened to sterile field. 13:46:48 ACIST Manifold (93385) opened to sterile field. 13:46:49 Medline Cath Pack ([id number]) opened to sterile field. 13:46:51 Bag Decanter (2002S) opened to sterile field. 13:47:16 EMERALD Guide Wire (502-918) opened to sterile field. 13:47:16 GUIDE 6FR XBLAD 3.5 catheter ([id number]) opened to sterile field. 13:47:17 INFLATOR Merit BasixCompak (RP8549) opened to sterile field. 13:47:18 WHISPER 300cm guide wire ([id number]) opened to sterile field. 13:47:23 SHEATH 6FR [place] (ASZ788) opened to sterile field. 13:47:28 Zero performed for pressure channel P1 13:48:43 Procedure started. 13:49:44 Local anesthetic to left femerol artery with Lidocaine 2% by Sajan Rdz MD.INITIAL ACCESS ONLY 13:50:16 A 6 Fr Short sheath was inserted into the Left Femoral artery 13:50:30 6 Fr XBLAD 3.5 guide catheter was inserted over the wire 13:50:46 Versed 1 mg I.V. was administered by Kartik Dumont RN; for sedation; 13:50:49 Fentanyl 50 mcg I.V. was administered by Kartik Dumont RN; for sedation; 13:52:00 Heparin Bolus 4000 units I.V. was administered by Kartik Dumont RN; for anticoagulation; verified with dr gray 13:54:19 WHISPER 300 wire advanced. 13:55:59 Place stent Inflation Number: 1 A FORREST OTW 3.0 x 18 stent ([id number]) was prepped and advanced across the Mid LAD . The stent was deployed at 14 HECTOR for 0:20 (min:sec) . 13:56:58 Stent catheter was removed intact over wire. 13:59:39 Quick Combo opened to sterile field. 13:59:57 Versed 1 mg I.V. was administered by Kartik Dumont RN; for sedation; 13:59:58 QUICK COMBO PADS ATTACHED. PT. RHYTHM CHANGE 14:00:00 Fentanyl 50 mcg I.V. was administered by Kartik Dumont RN; for sedation; 14:02:21 BMW 300cm [place] 2 J wire ([id number]) opened to sterile field. 14:02:44 WIRE REMOVED. EXCHANGED FOR BMW 14:04:21 Wire redirected to DIAG. 14:04:30 Lopressor 5 mg I.V. was administered by Kartik Dumont RN; Per physician; 14:07:54 Versed 1 mg I.V. was administered by Kartik Dumont RN; for sedation; 14:09:45 BMW REMOVED. UNABLE TO CROSS DIAG 14:09:50 WHISPER 300cm guide wire ([id number]) opened to sterile field. 14:11:53 WHISPER ADVANCED ACROSS DIAG 14:12:05 Versed 1 mg I.V. was administered by Kartik Dumont RN; for sedation; 14:12:09 Fentanyl 50 mcg I.V. was administered by Kartik Dumont RN; for sedation; 14:12:33 Heparin Bolus 2000 units I.V. was administered by Kartik Dumont RN; for anticoagulation; verified with dr gray 14:13:02 Inflate balloon Inflation number: 1 A EUPHORA 1.5 x 15 Balloon ([id number]) was prepped and advanced across the 1st Diag 100, then inflated to 10 HECTOR for 0:00 (min:sec) . 14:13:48 Balloon removed over the wire. 14:16:27 Inflate balloon Inflation number: 2 A EUPHORA 2.5 x 12 Balloon ([id number]) was prepped and advanced across the 1st Diag , then inflated to 6 HECTOR for 0:00 (min:sec) . 14:17:31 Balloon removed over the wire. 14:17:36 Wire removed. 14:17:36 Guide catheter removed. 14:17:49 EXOSEAL 6Fr (EX600) opened to sterile field. 14:18:04 Sheath removed intact; hemostasis achieved with Exoseal to the Left Femoral artery. 14:18:17 Procedure ended.(Physican Out) 14:21:00 Fluoroscopy time 11.00 minutes. 14:21:07 Flurop Dose total: 951 14:21:07 Fluoroscopy dose: 951 mGy 14:21:11 Contrast amount:Isovue 300 137ml. 14:21:12 Sharps counted by scrub and verified by R.N. 14:21:16 Post-op/insertion site Left Femoral artery dressed using a 4 x 4 and Tegaderm. 14:21:46 Post-procedure physical assessment completed. ASA score P 2 - A patient with mild systemic disease as per Sajan Rdz MD. 14:21:51 Post procedure rhythm: sinus rhythm 14:21:55 Estimated blood loss: 10 ml 14:21:57 Post procedure instruction explained to patient.Patient verbalizes understanding. 14:21:57 Patient needs reinforcement of post procedure teaching. 14:22:25 Procedure type changed to Cath procedure, Diagnostic procedure, Sedation Charges, Moderate Sedation up to 30 minutes, PCI procedure, Coronary Stent, Coronary Stent Initial, PTCA, PTCA Additional 14:22:51 Procedure and supply charges have been captured, reviewed, submitted and are correct. 14:22:53 Procedure Complication : No complications 14:28:40 Vital chart was stopped 14:28:40 See physician's report for complete and final results. 14:28:45 Report given to Med II. 14:28:47 Patient transfered to Med II with Bed. 14:28:49 Procedure ended. 14:28:49 Full Disclosure recording stopped 14:28:54 End room use (Document Last) Intervention Summary Intervention Notes Time ActionType Lesion and Equipment Action# Pressure Duration Attributes Used 13:55:59 Place stent Mid LAD FORREST OTW 3.0 1 14 00:20 x 18 stent ([id number]) 14:13:02 Inflate 1st Diag EUPHORA 1.5 x 1 10 00:00 balloon 15 Balloon ([id number]) 14:16:27 Inflate 1st Diag EUPHORA 2.5 x 2 6 00:00 balloon 12 Balloon ([id number]) Device Usage Item Name Manufacture Quantity Catalog Hospital Part Current Min imal Lot# / Number Charge Number Stock Stock Serial# Code ACIST Syringe Acist 1 39589 201061 336075 156307 20 (32775) Medical Systems Inc ACIST Hand Acist 1 38555 035063 787369 312564 5 Control Medical (02372) Systems Inc ACIST Acist 1 62970 221806 197655 485169 5 Manifold Medical (69905) Systems Inc Medline Cath Medline 1 [id number] 242584 49432 036134 5 Pack ([id number]) Bag Decanter Microtek 1 2001S 814846 61799 680618 5 () Medical Inc. EMERALD Guide Cardinal 1 502-455 286680 115451 857024 5 Wire Health (502-455) GUIDE 6FR Cardinal 1 [id number] 074045 383085 669183 10 XBLAD 3.5 Health catheter (13021218) INFLATOR Merit 1 [id number] 261921 232415 615738 15 Merit Medical BasixCompak (RT3671) WHISPER 300cm Varma 2 [id number] 441110 199570 690019 5 guide wire Vascular ([id number]) SHEATH 6FR Terumo 1 DWJ567 909564 142578 970358 40 [place] (OSZ893) FORREST OTW 3.0 Medtronic 1 [id number] 615140 6037976 513652 5 [id number] x 18 stent ([id number]) Quick The [employer] Robodrom Systems 1 45131-986683 606792 936022 573968 5 BMW 300cm Varma 1 [id number] 858799 648039 677701 5 [place] 2 J Vascular wire (2959230Z) EUPHORA 1.5 x Medtronic 1 [id number] 090008 414847 427598 5 [id number] 15 Balloon ([id number]) EUPHORA 2.5 x Medtronic 1 [id number] 410520 029258 023243 5 [id number] 12 Balloon ([id number]) EXOSEAL 6Fr Cardinal 1 EX600 716888 327609 222385 10 (EX600) Health Signature Audit Kouts Stage Time Signature Unsigned Intra-Procedure 05/11/2019 Kari Hare 2:29:44 PM RT(R) Signatures Monitor : Kari Hare Signature : RT Date : Time : [address] [place] [address]
[~2019-05-11 04:54] MED LIST changes: +ASPIRIN81 MG PO; +LIPITOR40 MG PO; +METOPROLOL TART25 MG PO; +PLAVIX75 MG PO
[2019-05-11 05:25] LABS: BASOPHILS 0.2 % (0-2); EOSINOPHILS 1.2 % (0-7); HEMATOCRIT 42.6 % (42.0-54.0); HEMOGLOBIN 14.4 g/dL (13.5-17.5); IMMATURE GRANULOCYTES 0.2 % (0-5); MCH 29.6 pg (26.0-34.0); MCHC 33.8 g/dL (31.0-37.0); MCV 87.5 fL (80.0-100.0); MEAN PLATELET VOLUME 11.8 fL (7.4-10.4); MONOCYTES 8.4 % (2-11); PLATELET COUNT 254 10x3/uL (130-400); RBC 4.87 10x6/uL (4.20-6.10); RDW 13.6 % (11.5-14.5); WBC 10.2 10x3/uL (4.8-10.8)
[2019-05-11 05:30] VITALS: BP 157/77
[2019-05-11 05:51] LABS: ALBUMIN 3.3 g/dL (3.4-5.0); ALKALINE PHOSPHATASE 197 U/L (46-116); ALT (SGPT) 135 U/L (10-68); BILIRUBIN - TOTAL 1.69 mg/dL (0.2-1.3); CALC OSMOLALITY 280 mosm/kg (275-300); CALCIUM 9.2 mg/dL (8.5-10.1); CARBON DIOXIDE 28.4 mmol/L (21.0-32.0); CHLORIDE - SERUM 101 mmol/L (98-107); GLUCOSE 128 mg/dL (74-106); POTASSIUM - SERUM 3.9 mmol/L (3.5-5.1); PROTEIN - SERUM 7.3 g/dL (6.4-8.2); SODIUM 139 mmol/L (136-145); UREA NITROGEN 14 mg/dL (7-18); eGFR NON AFRICAN AMERICAN 76 mL/min (90-120)
--- NOTE | 2019-05-11 05:57 | NUR ---
PT RESTING QUIETLY WITH EYES CLOSED. EVEN AND UNLABORED RESPIRATIONS.
[2019-05-11 05:58] LABS: CKMB 0.3 U/L (0.0-3.6); CREATINE KINASE 20 UL (21-232); TROPONIN-I < 0.017 ng/mL (0.000-0.060)
--- NOTE | 2019-05-11 07:10 | NUR ---
REPORT RECEIVED FROM EDGER MACHINE OPERATOR AND PATIENT CARE ASSUMED. PATIENT LAYING IN BED ON BACK AWAKE, ALERT AND ORIENTED X 4. PATIENT IS NPO AWAINTING POSSIBLE HEART CATH. PATIENT IS STABLE AND VSS. PATIENT DENIES ANY NEEDS OR PAIN. WILL CONTINUE WITH PLAN OF CARE. SR UP X 2 BED IN LOW POSITION AND CALL LIGHT IN REACH.
[2019-05-11 07:52] VITALS: BP 170/76
--- NOTE | 2019-05-11 10:00 | NUR ---
PATIENT RESTING COMFORTABLY IN BED. FAMILY AT BS. PATIENT IS STABLE AND UNCHAGED. WILL CONTINUE TO MONITOR. SR UP X 2 BED IN LOW POSITION AND CALL LIGHT IN REACH.
[2019-05-11 12:01] VITALS: BP 156/71
--- NOTE | 2019-05-11 12:15 | NUR ---
PHONE CALL RECIEVED SEBD TEACHER . PRE OP GIVEN PER MAR ORDER. PATIENT IS STABLE AND VSS. FAMILY AT . [facility].
[2019-05-11 12:22] LABS: MAGNESIUM - SERUM 1.9 mg/dL (1.8-2.4)
[2019-05-11 12:53] LABS: APPEARANCE CLEAR (CLEAR); BILIRUBIN NEGATIVE (NEGATIVE); COLOR YELLOW (YELLOW); GLUCOSE NEGATIVE (NEGATIVE); KETONE SMALL mg/dL (NEGATIVE); NITRITE NEGATIVE (NEGATIVE); PROTEIN NEGATIVE (NEGATIVE); SPECIFIC GRAVITY 1.015 (1.005-1.020); UROBILINOGEN NORMAL (NORMAL)
[2019-05-11 12:56] LABS: BACTERIA FEW /hpf (NONE SEEN); EPITHELIAL CELLS RARE /hpf (0-5); RED CELLS - URINE 0-5 /hpf (0-5); WHITE CELLS - URINE NSEEN /hpf (0-5)
--- NOTE | 2019-05-11 13:30 | NUR ---
PATIENT IS STABLE AND VSS. PATIENT TO CATH VIA HOPSITAL BED AND GROOVER AND TURNER PERSONNEL. FAMILY AT BEDSIDE.
--- NOTE | 2019-05-11 14:00 | NUR ---
PATIENT BIENG MONITORED EVERY 15 MINUTES. LEFT GROIN WITH MOFERATE SZ HEMATOMA. NO BLEEDING OR BRUISING NOTED. PEDAL PULSES GOOD AND VSS. ROX FROM WATER RECLAMATION SYSTEMS OPERATOR ON UNIT AND CALLED TO ROOM. FEMSTOP APPLIED. VS CONTINUED TO BE STABLE. PEDAL PULSE PALPATED EASILY. CONTACTED DR COE INFORMED. NEW ORDER RECEIVED FOR NORCO 7.5 MG PO. MEDICATED PATIENT PER JAN. WILL CONTINUE TO MONITOR PATIENT EVERY 15 MINUTES.
--- NOTE | 2019-05-11 14:33 | CN ---
PATIENT NAME:MINERVA NYE MEDICAL RECORD: [id number] : 35 LOCATION:D. D.2128 ADMIT DATE: 05/11/19 ACCOUNT: [id number] CONSULTING PHYSICIAN: LUKE COE MD REFERRING PHYSICIAN: MARILU GRULLON MD DATE OF CONSULTATION: 05/11/2019 HISTORY OF PRESENT ILLNESS: An 83-year-old gentleman with a known history of coronary artery disease, status post PTCA stenting of the right coronary, has residual disease of the LAD, managed medically very well, onset the last 5-6 days, chest tightness and pressure, progression to rest symptomology last night, was admitted for further evaluation. PAST MEDICAL HISTORY: Includes: 1. Coronary artery disease. 2. Hypertension. 3. Hyperlipidemia. MEDICATIONS: Include Plavix 75 every day, atorvastatin 40 every day, metoprolol 25 b.i.d., aspirin 81 every day, Neurontin 300 q.h.s., HCTZ 25 every day, Singulair 10 q.h.s. ALLERGIES: None known. SOCIAL HISTORY: . Nonsmoker and nondrinker. Does try to walk on a regular basis. REVIEW OF SYSTEMS: The patient reports easy bruising but reports no swollen glands. The patient reports no fever, no night sweats, no significant weight gain, no significant weight loss. No significant exercise tolerance. The patient reports no dry eyes, no irritation, no vision change. Patient reports no difficulty hearing and no ear pain. Patient reports no frequent nose bleeds or nose and sinus problems. Patient reports on arm pain on exertion. No shortness of breath while lying down. No history of heart murmur. Patient reports no cough, no wheezing or coughing up blood. Patient reports no abdominal pain, no vomiting. Normal appetite. No diarrhea and not vomiting blood. No nausea and no constipation. Patient reports no incontinence. No difficulty urinating. No hematuria. No increased frequency. Patient reports no muscle aches. No weakness, no arthralgias, no back pain. No swelling of the extremities. Patient reports no abnormal mole, no jaundice, no rashes. Reports no loss of consciousness. No weakness and no numbness. No seizures, dizziness, or headaches. The patient reports no depression, no sleep disturbance, feeling safe in a relationship and no alcohol abuse. Patient reports on fatigue. Reports no runny nose or sinus pressure. No itching, no hives, and no frequent sneezing. PHYSICAL EXAMINATION: GENERAL: Pleasant gentleman in no acute distress, appears younger than stated age. VITAL SIGNS: Blood pressure 178/76, pulse 68 and regular. HEENT: Normocephalic, atraumatic. NECK: No bruits noted. HEART: Regular, II/ systolic ejection murmur. LUNGS: Good air excursion. ABDOMEN: Soft, nontender. CONSULT REPORT [id number] PARRISMINERVA EXTREMITIES: Pulses well preserved, 2+. No edema. DIAGNOSTIC DATA: ECG shows nonspecific ST-T changes inferiorly. IMPRESSION: Known history of coronary artery disease with residual disease of the LAD managed medically, now failed medical therapy. PLAN: For intervention to the LAD in the near future. TRANSINT:[id number] Voice Confirmation ID: [id number] DOCUMENT ID: [id number] LUKE COE MD at 1433 CC: [id number] DICTATION DATE: 05/11/19923 NAVAL AIRCREWMAN TACTICAL HELICOPTER: 05/11/19 09 ADM IN [facility] [address] [place] [address]
--- NOTE | 2019-05-11 15:00 | NUR ---
PATIENT RETURNED FROM LOGISTICS COORDINATOR VIA LOGISTICS COORDINATOR PERSONNEL AND HOSPITAL BED. PATIENT IS STABLE AND VSS. DRSG TO LEFT GROIN WITH DIME SIZE BRIGHT RED BLOOD. PER ROX WITH LOGISTICS COORDINATOR TEAM, NOT INCREASING IN SIXE. NO BLEEDING, BRUISING OR HEMATOMA NOTED. WILL CONTINUE TO MONITOR EVERY 15 MINUTES AND VS AND OBSERVING WOUND. PATIENT DENIES ANY NEEDS OR PAIN. SR UP X 2 BED IN LOW POSITION AND CALL LIGHT IN REACH.
[2019-05-11 15:38] VITALS: BP 115/71
[2019-05-11 15:47] LABS: INR 1.18 (0.85-1.17); PROTIME 14.5 SECONDS (11.6-15.0)
[2019-05-11 16:00] VITALS: BP 102/78
[2019-05-11 16:32] LABS: APTT > 200.0 SECONDS (22.8-39.4)
--- NOTE | 2019-05-11 17:00 | NUR ---
PATIENT IS STABLE AND VSS. PATIENT RESTING QUIETLY LAYING FLAT IN BED WITH LEGS STRAIGHT. FEMSTOP REMOVED. SLIGHT BRUISING, SMALL FIRMNESS NOTED. PEDAL AND PERIPHERAL PULSE PALPATED. NO BLEEDING NOTED AFTER 15 MINUTES. WILL CONTINUE TO MONITOR EVERY 15 MINUTES.
--- NOTE | 2019-05-11 18:23 | NUR ---
PATIENT IS STABLE AND VSS. PATIENT CONTINUES TO LAY FLAT WITH LEGS STRAIGHT. PERIPHERAL PULSES PALPATED. LT GROIN STABLE AND UNCHANGED. WILL CONTINUE TO MONITOR. SR UP X 2 BED IN LOW POSTION AND CALL LIGHT IN REACH.
[2019-05-11 20:00] VITALS: BP 117/61
--- NOTE | 2019-05-11 20:07 | NUR ---
BED LOW AND LOCKED CALL LIGHT WITH PT AND LCTA SKIN WARM AND DRY LCTA DENIES CP AND BOWEL SOUNDS X4 SKIN WARM AND DRY DRSG TO LEFT GROIN HAS A SMALL AMOUNT OF OLD BLOOD NOTED BT PREVIOUS NURSE IN REPORT AND BRUISING WELL BUT AREA IS SOFT AND PT DENIES PAINPULSES ARE INTACT BELOW SITE
[2019-05-12] VITALS: BP 117/62
[2019-05-12 00:49] VITALS: Ht 152.4 cm; Wt 83.6 kg
--- NOTE | 2019-05-12 02:14 | NUR ---
I have reviewed this patient and I concur with the Shift Assessment completed by the Licensed Practical Nurse today this shift
[2019-05-12 04:00] VITALS: BP 118/58
[2019-05-12 05:45] LABS: BASOPHILS 0.3 % (0-2); EOSINOPHILS 2.3 % (0-7); HEMATOCRIT 37.7 % (42.0-54.0); HEMOGLOBIN 12.2 g/dL (13.5-17.5); IMMATURE GRANULOCYTES 0.1 % (0-5); MCH 28.4 pg (26.0-34.0); MCHC 32.4 g/dL (31.0-37.0); MCV 87.7 fL (80.0-100.0); MEAN PLATELET VOLUME 11.7 fL (7.4-10.4); MONOCYTES 10.1 % (2-11); NEUTROPHILS 76.2 % (40-80); PLATELET COUNT 254 10x3/uL (130-400); RDW 13.8 % (11.5-14.5); WBC 9.4 10x3/uL (4.8-10.8)
[2019-05-12 06:06] LABS: ALBUMIN 2.7 g/dL (3.4-5.0); ALKALINE PHOSPHATASE 156 U/L (46-116); ALT (SGPT) 119 U/L (10-68); BILIRUBIN - TOTAL 0.42 mg/dL (0.2-1.3); CALC OSMOLALITY 278 mosm/kg (275-300); CALCIUM 8.5 mg/dL (8.5-10.1); CARBON DIOXIDE 26.4 mmol/L (21.0-32.0); CHLORIDE - SERUM 103 mmol/L (98-107); CREATININE - SERUM 0.9 mg/dL (0.6-1.3); GLUCOSE 97 mg/dL (74-106); POTASSIUM - SERUM 3.8 mmol/L (3.5-5.1); PROTEIN - SERUM 6.2 g/dL (6.4-8.2); SODIUM 139 mmol/L (136-145); UREA NITROGEN 14 mg/dL (7-18); eGFR NON AFRICAN AMERICAN 85 mL/min (90-120)
--- NOTE | 2019-05-12 07:10 | NUR ---
REPORT RECEIVED FROM INSTRUCTOR OF NURSING AND PATIENT CARE ASSUMED. PATIENT IS AWAKE, ALERT AND ORIENTED X 4. PATIENT IS STABLE AND VSS. LT GROIN DRSG C/D/I. NO BLEEDING, BRUISING OR HEMATOMA NOTED. PATIENT DENIES ANY NEEDS OR PAIN. WILL CONTINUE TO MONITOR. SR UP X 2 BED IN LOW POSITION AND CALL LIGHT IN REACH.
[2019-05-12 09:33] VITALS: BP 137/65
--- NOTE | 2019-05-12 11:45 | NUR ---
PATIENT IS STABLE AND VSS. ORDERS RECEIVED FOR DC. WRITTEN AND VERBAL INSTRUCTIONS GIVEN . PATIENT VERBALIZED UNDERSTANDING AND SIGNED DC PAPERS. IV REMOVED WITH CATHETER INTACT. LT GROIN DRSG C/D/I. PATIENT IS STABLE AND VSS, PATIENT DENIES ANY NEEDS OR PAIN. PATIENT TRANSPORTED TO FRONT DOOR VIA WC AND [facility]OPSITAL PERSONNEL TO PRIVATED VEHICLE DRIVEN BY FAMILY MEMBER.
--- NOTE | 2019-05-13 10:48 | OP ---
PATIENT NAME: MINERVA NYE MEDICAL RECORD: [id number] :35 LOCATION:D.M2 D.2128 ADMISSION DATE:05/11/19 SURGEON: LUKE COE MD DATE OF OPERATION: 05/11/2019 PROCEDURE: PTCA stent. DESCRIPTION OF PROCEDURE: A 6-Dutch sheath was placed in left femoral artery, an EBU XB LAD 3.5 guiding catheter provided excellent guide catheter support followed by 300-cm Whisper wire placed across the 90% stenosis to the LAD to the distal portion of this vessel. Stent deployed was a 3.0 x 10 mm Sarath drug-eluting stent. This showed excellent resolution. There was 90% stenosis, no significant residual. However, there was marked snowplowing with total occlusion of the second diagonal. We were able to place a BMW wire across the tele-snowplowed diagonal on this portion of the vessel. I then placed a 2.5 x 15 mm Euphora balloon through the diagonal inflated up to 8 atmospheres. This showed nice lutheran of LASHAY flow from 0 to 3. OVERALL IMPRESSION: 1. Successful percutaneous transluminal coronary angioplasty stenting to the left anterior descending. 2. Successful percutaneous transluminal coronary angioplasty to the diagonal, no significant residual. LASHAY flow was 3 throughout the procedure. Sheath was closed with ExoSeal device. The patient was previously on Plavix, so heparin was used during the case. TRANSINT:[id number] Voice Confirmation ID: [id number] DOCUMENT ID: [id number] LUKE COE MD at 1048 CC: [id number] DICTATION DATE: 05/11/191426 DIRECTOR OF STUDENT FINANCIAL AID: 05/11/19 [id number] DIS IN 05/12/19 [facility] [address] [id number]
--- NOTE | 2019-05-14 08:57 | MORECARE ---
CASE MANAGEMENT DISCHARGE SUMMARY PATIENT: MINERVA NYE UNIT: [id number] ADM DATE: 05/11/19 AGE: 83 : 35 SEX: M ROOM/BED: D.2128 AUTHOR: FARHANA DIAZ PHYSICIAN: REFERRING PHYSICIAN: MARILU GRULLON MD DATE OF SERVICE: 05/14/19 Discharge Plan Patient Name: MINERVA NYE Facility: [facility] : 1935 Planned Disposition: Home Anticipated Discharge Date: 05/12/19 Discharge Date: 05/12/2019 Expected LOS: 1 Initial Reviewer: [id number] Initial Review Date: 05/14/2019 Generated: 05/14/19 9:57 am Patient Name: MINERVA NYE Page [id number] at 0857 All edits/amendments must be made on the electronic document DICTATION DATE: 05/14/1956 COMPUTER ASSEMBLER: CY 05/14/19 0856 RPT#: [id number] DC DATE:05/12/19 STATUS: DIS IN [facility] [address] [place] [address] END OF REPORT
== END 2019-05-12 11:49 | disposition home or self-care (01) ==
LOC: D.ER 04:54 → D.M2 06:06 → OBSVTIME 06:06 → D.M2 05-12 11:49
PROVIDERS: Family Medicine; ADMIT Internal Medicine Nephrology; ATTEND Internal Medicine Nephrology
DX: I25.10 Atherosclerotic heart disease of native coronary artery without angina pectoris (principal); K70.10 Alcoholic hepatitis without ascites; I10 Essential (primary) hypertension; J44.9 Chronic obstructive pulmonary disease, unspecified; K21.9 Gastro-esophageal reflux disease without esophagitis; N40.0 Benign prostatic hyperplasia without lower urinary tract symptoms; F10.10 Alcohol abuse, uncomplicated; E78.5 Hyperlipidemia, unspecified
CPT/HCPCS: 92920; C9600